=== PATIENT | male | born 1980 | race Caucasian/White ===

== ENCOUNTER 2018-07-27 12:45 | Outpatient (CLI) | payer OTHER ==
--- NOTE | 2018-07-28 10:58 | MRI Report ---
Reason: PAIN IN LEFT KNEER Procedure Date: 07/27/2018 Accession Number: [id number] / [id number] Procedure: MRI - Knee LT W/O CPT Code: FULL RESULT: EXAM: LEFT KNEE MRI WITHOUT CONTRAST EXAM DATE: 07/27/2018 02:31 PM. CLINICAL HISTORY: Pain in left knee. COMPARISON: None. TECHNIQUE: Multiplanar, multisequence T1-weighted and fluid-sensitive sequences of the knee without contrast. Other: None. FINDINGS: Cruciate Ligaments: The anterior and posterior cruciate ligaments appear intact. Medial Meniscus: Partial-thickness radial tear at the root of the posterior horn. Small amount of intrasubstance degeneration. Otherwise intact. Lateral Meniscus: Intact. No tear is identified. Collateral Ligaments: The medial and fibular collateral ligaments appear intact. Bones and articular Surfaces: Focal cartilage thinning and fissuring at the central trochlea. Small amount of superficial cartilage fissuring at the central patella. Mild cartilage thinning and surface irregularity in the medial compartment. Small joint effusion. Extensor Mechanism: The patellar tendon and quadriceps insertion appear intact. IMPRESSION: 1. Mild degenerative cartilage changes in the medial and patellofemoral compartments. 2. Medial meniscus intrasubstance degeneration and partial-thickness radial tear at the root of the posterior horn. Otherwise intact. 3. Small joint effusion. RADIA
== END 2018-07-27 12:46 | disposition home or self-care (01) ==
LOC: DI 12:45
PROVIDERS: ATTEND General Practice
DX: M17.12 Unilateral primary osteoarthritis, left knee (principal); S83.242A Other tear of medial meniscus, current injury, left knee, initial encounter

== ENCOUNTER 2021-01-07 14:47 | Emergency (ER) | payer OTHER ==
[2021-01-07 15:11] VITALS: BP 145/92
--- NOTE | 2021-01-07 16:07 | XRAY Report ---
PROCEDURE: Chest 1 View X-Ray INDICATIONS: cough/sob TECHNIQUE: One view of the chest was acquired. COMPARISON: None FINDINGS: Surgical changes and devices: None. Lungs and pleura: No pleural effusions or pneumothorax. Lungs are clear. Mediastinum: Mediastinal contours appear normal. Heart size is normal. Bones and chest wall: No suspicious bony lesions. Overlying soft tissues appear unremarkable. IMPRESSION: No acute pulmonary process. Reviewed by: Mera Plasencia MD on 01/07/2021 4:05 PM PDT Approved by: Mera Plasencia MD on 01/07/2021 4:05 PM PDT Station ID: [id number]
--- NOTE | 2021-01-07 16:45 | ED Physician Documentation ---
History of Present Illness - Stated complaint Stated Complaint: WHEEZING - Chief complaint Chief Complaint: Resp - History obtained from History obtained from: Patient - Additonal information Additional information: Patient comes emergency department chief complaint of shortness of breath and wheezing for about the last month and a half. He states that he has also had an ongoing dry cough. Patient states that he was [place] in the [place] for some months, ending in mid October, and during that time, he was constantly exposed to dust and had an ongoing dry cough. A few weeks after his return, his family got sick with a viral illness and the patient ultimately ended up coming down with symptoms himself. He states he did have Covid in April and then was vaccinated in June as soon as he was able. He states that ever since He had the viral illness, he has had a persistent dry cough. He states he is able to exercise and do running, but that afterward, he finds himself coughing more. He also states he has noticed that he wheezes at night and his tells him she can hear it herself. Patient states he has tried a humidifier in his room but has not helped. He does not have any known allergies. He had a single asthma exacerbation as a child but was never diagnosed with asthma chronically. Patient is not a smoker. No other complaints at this time. He does not currently feel short of breath but just keeps feeling the urge to cough. Review of Systems Ten Systems: 10 systems reviewed and negative Constitutional: reports: Reviewed and negative Eyes: reports: Reviewed and negative Ears: reports: Reviewed and negative Nose: reports: Reviewed and negative Throat: reports: Reviewed and negative Cardiac: reports: Reviewed and negative Respiratory: reports: Cough, Wheezing GI: reports: Reviewed and negative : reports: Reviewed and negative Skin: reports: Reviewed and negative Musculoskeletal: reports: Reviewed and negative Neurologic: reports: Reviewed and negative Psychiatric: reports: Reviewed and negative Endocrine: reports: Reviewed and negative Immunocompromised: reports: Reviewed and negative PD PAST MEDICAL HISTORY - Present Medications Home Medications: Ambulatory Orders Medication Instructions Recorded Confirmed Albuterol Sulf [Ventolin Hfa 1 - 2 puffs INH Q4HR PRN #1 inhaler 01/07/21 Inhaler] predniSONE [Deltasone] 60 mg PO DAILY 5 Days #15 tablet 01/07/21 - Allergies Allergies/Adverse Reactions: Allergies Allergy/AdvReac Type Severity Reaction Status Date / Time No Known Drug Allergies Allergy Verified 01/07/21 15:11 PD ED PE NORMAL - Vitals Vital signs reviewed: Yes - General General: Alert and oriented X 3, No acute distress, Well developed/nourished - HEENT HEENT: Atraumatic, PERRL, EOMI, Moist mucous membranes - Neck Neck: Supple, no meningeal sign - Cardiac Cardiac: RRR, No murmur, Strong equal pulses - Respiratory Respiratory: No respiratory distress, Clear bilaterally, Other (Patient does have a short coughing fit after exhaling.) - Abdomen Abdomen: Soft, Non tender, Non distended - Derm Derm: Normal color, Warm and dry, No rash - Extremities Extremities: No deformity, No edema - Neuro Neuro: Alert and oriented X 3, 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 CXR was negative. I d/w pt that he may be suffering from low-level allergies or from reactive airway disease presenting atypically. We have discussed home management, and I have prescribed him an MDI and a short course of steroids. We have discussed follow-up and the usual indications for return. Departure - Departure Disposition: 01 Home, Self Care Clinical Impression: Reactive airway disease Qualifiers: Asthma severity: mild Asthma persistence: intermittent Asthma complication type: uncomplicated Qualified Code(s): J45.20 - Mild intermittent asthma, uncomplicated Condition: Stable Instructions: ED Reactive Airway Disease Prescriptions: Albuterol Sulf [Ventolin Hfa Inhaler] 1 - 2 puffs INH Q4HR PRN #1 inhaler PRN Reason: Shortness Of Air/Wheezing predniSONE [Deltasone] 60 mg PO DAILY 5 Days #15 tablet Comments: Your chest x-ray looks good. Most likely, you have gotten in a cycle of airway irritation which is causing your ongoing cough. It is also possible that you have some low-lying environmental allergies, which are continuing to irritate your airways, as well. Please take the steroids in the inhaler puffs, as we have discussed. You may also consider getting a portable air fur cleaner for your bedroom for at night when you feel like your symptoms are the worst. If you find that none of these interventions are helpful, please follow-up with your primary doctor to discuss potentially being referred to a [facility] for pulmonary function testing and further evaluation. Discharge Date/Time: 01/07/21 16:53
== END 2021-01-07 16:53 | disposition home or self-care (01) ==
LOC: ED 14:47
DX: J45.20 Mild intermittent asthma, uncomplicated (principal); Z86.16 Personal history of COVID-19
CPT/HCPCS: 99283; 99284

== ENCOUNTER 2021-10-19 09:56 | Outpatient (CLI) | payer OTHER ==
--- NOTE | 2021-10-20 10:33 | XRAY Report ---
PROCEDURE: Ankle 3 View RT INDICATIONS: SPRAIN OF OTHER LIGAMENT OF RIGHT ANKLE TECHNIQUE: 3 views of the ankle were acquired. COMPARISON: None. FINDINGS: Bones: No acute fractures or dislocations. Corticated fragments projecting near the medial malleolus may represent sequela of prior trauma. Ankle mortise is normally aligned. Degenerative changes are present at the tibiotalar joint. A plantar calcaneal spur and Achilles tendon enthesophyte are presen t. No suspicious bony lesions. Soft tissues: A tibiotalar joint effusion is present. IMPRESSION: 1. No definite acute osseous abnormality visualized. If symptoms persist, follow-up radiographs and/o r CT may be helpful for further evaluation. 2. A tibiotalar joint effusion is present. Reviewed by: Vinod Johnson MD on 10/20/2021 10:31 AM PDT Approved by: Vinod Johnson MD on 10/20/2021 10:31 AM PDT Station ID: [id number]
== END 2021-10-19 09:57 | disposition home or self-care (01) ==
LOC: DI 09:56
PROVIDERS: ATTEND Physician Assistant Medical
DX: S93.491A Sprain of other ligament of right ankle, initial encounter (principal); M25.471 Effusion, right ankle